=== PATIENT | female | born 1975 | race African-American/Black ===

== ENCOUNTER 2021-06-24 11:00 | Outpatient (RCR) | payer OTHER, MEDICAID, SELFPAY | END 2021-06-24 23:59 | disposition home or self-care (01) | LOC: ANHAUDIO 11:00 | PROVIDERS: PCP Nurse Practitioner Family | DX: Z46.1 Encounter for fitting and adjustment of hearing aid (principal) | CPT/HCPCS: 99199; V5160; V5261 ==